=== PATIENT | male | born 1975 | race Caucasian/White ===

== ENCOUNTER 2019-12-09 21:19 | Emergency (ER) | payer SELFPAY ==
[~2019-12-09] VITALS: Ht 162.6 cm; Wt 82.0 kg
[2019-12-09] MEDS ORDERED: TETRACAINE 0.5% OPHTH DROPS 4ML BOTHEYE ONE (23:00)
[2019-12-09] MEDS ORDERED: FLUORESCEIN SODIUM 1MG/STRIP BOTHEYE ONE (23:30)
[2019-12-09] MEDS ORDERED: BALANCED SALT IRRIG SOLN 15ML IR ONE (23:45)
[2019-12-10] MEDS ORDERED: GENTAMICIN 0.3% OPHTH DROPS 5ML BOTHEYE ONE (00:30)
[2019-12-10 01:46] VITALS: BP 142/80
== END 2019-12-10 01:54 | disposition home or self-care (01) ==
LOC: ER 21:19
DX: H10.213 Acute toxic conjunctivitis, bilateral (principal); B99.9 Unspecified infectious disease; H10.89 Other conjunctivitis; F17.290 Nicotine dependence, other tobacco product, uncomplicated
CPT/HCPCS: 99284; 99406